=== PATIENT | male | born 1995 | race Two or more races ===

== ENCOUNTER 2017-07-08 12:38 | Emergency (ER) | payer OTHER ==
[~2017-07-08] VITALS: Ht 172.7 cm; Wt 74.8 kg
[2017-07-08 13:18] VITALS: BP 148/92
== END 2017-07-08 13:30 | disposition home or self-care (01) ==
LOC: ER 12:38
DX: S61.232A Puncture wound without foreign body of right middle finger without damage to nail, initial encounter (principal); L03.011 Cellulitis of right finger; X58.XXXA Exposure to other specified factors, initial encounter; Y93.67 Activity, basketball; Y92.89 Other specified places as the place of occurrence of the external cause; Y99.8 Other external cause status